=== PATIENT | male | born 1955 | race Caucasian/White ===

== ENCOUNTER 2020-08-03 04:21 | Emergency (ER) | payer MEDICAID, SELFPAY ==
[~2020-08-03] VITALS: Ht 177.8 cm; Wt 56.2 kg
--- NOTE | 2020-08-03 04:59 | NUR ---
PT SITTING IN BED, POSTITIONED TO COMFORT, BEDRAILS UP X2, CALL LIGHT IN REACH. PT CONNECTED TO BP AND O2 MONITORS. PT STARTED TREATMENT FOR CA ON 07/16/2020.
[2020-08-03 05:22] LABS: ALBUMIN 2.6 g/dL (3.4-5.0); ANION GAP 6 mmol/L (5-15); CALCIUM 8.9 mg/dL (8.5-10.1); CHLORIDE 98 mmol/L (98-107)
[2020-08-03 05:24] LABS: BASOPHILS % (AUTO) 1 % (0-1); EOSINOPHILS % (AUTO) 1 % (1-7); LYMPHOCYTES % (AUTO) 16 % (22-44); MEAN CORPUSCULAR HEMOGLOBIN 28.1 pg (27.5-34.5); MEAN CORPUSCULAR HGB CONC 33.9 g/dL (33.2-36.2); MONOCYTES % (AUTO) 10 % (2-9); NEUTROPHILS % (AUTO) 72 % (42-75); PLATELET COUNT 360 x10^3/uL (130-400); RED BLOOD COUNT 4.45 x10^6/uL (4.38-5.82); RED CELL DISTRIBUTION WIDTH 16.4 % (9.4-14.8)
[2020-08-03 05:26] LABS: ALANINE AMINOTRANSFERASE 21 U/L (12-78); ALKALINE PHOSPHATASE 92 U/L (45-117); BILIRUBIN,TOTAL 0.6 mg/dL (0.2-1.0); CREATININE 0.69 mg/dL (0.7-1.3); TOTAL PROTEIN 6.9 g/dL (6.4-8.2)
[2020-08-03 05:54] LABS: MD NO
--- NOTE | 2020-08-03 05:56 | NUR ---
AWAITING US READ, PT CONDITION UNCHANGED. ALL NEEDS MET AT THIS TIME.
[2020-08-03] MEDS ORDERED: SODIUM CHLORIDE FLUSH 10ML SYR IVF ONE (06:30)
[2020-08-03] MEDS ORDERED: SODIUM CHLORIDE 0.9% 1,000ML IVBOLUS ONE (06:30)
--- NOTE | 2020-08-03 06:38 | NUR ---
MD TO BEDSIDE. PT INTERACTING APPRORIATELY. ALL NEEDS MET AT THIS TIME. PT PLACED ON TELETYPE OR VARITYPE KEYBOARD OPERATOR. FLUIDS INFUSING, WILL CONTINUE TO MONITOR BP. PT DENIES DIZZINESS OR LIGHTHEADEDNESS. PT STATES HE'S BEEN FEELING MORE EASILY TIRED THE PAST 2 WEEKS WHEN HE FIRST NOTED THE ARM SWELLING.
--- NOTE | 2020-08-03 06:57 | NUR ---
BEDSIDE REPORT TO [employer].
[2020-08-03 07:15] VITALS: BP 98/65
== END 2020-08-03 09:12 | disposition home or self-care (01) ==
LOC: ED 06:28
DX: I89.0 Lymphedema, not elsewhere classified (principal)
CPT/HCPCS: 36415; 80053; 85025; 93971; 99284; J7030

== ENCOUNTER → 2020-10-09 | Outpatient (CLI) | payer MEDICAID | END | disposition home or self-care (01) | LOC: RAD 11:18 | PROVIDERS: ATTEND Internal Medicine | DX: C43.62 Malignant melanoma of left upper limb, including shoulder (principal); R22.2 Localized swelling, mass and lump, trunk ==

== ENCOUNTER 2021-07-08 00:56 | Inpatient (IN) | payer MEDICAID ==
[2021-07-08] VITALS (8 sets, daily range): BP systolic 78–109; BP diastolic 44–63
[~2021-07-08] VITALS: Ht 177.8 cm; Wt 65.0 kg
--- NOTE | 2021-07-08 01:05 | NUR ---
PT BIB EMS FROM HOME W CO MULTIPLE BLACK STOOLS AND TWO EPISODES OF HEMATEMESIS TODAY. PT HYPOTENSIVE AND ORTHOSTATIC ONSCENE. ARRIVES A&OX4, PALE; BLOOD NOTED ON FACE, HANDS, AND CLOTHING. DENIES ABD PAIN. DENIES BLOOD THINNERS THOUGH REPORTS TAKING ASPIRIN SUPPLEMENTS REGULARLY "FOR STOMACHE PROBLEMS". MM PALE, ABD NON-TENDER. HX CANCER WHICH PT STATES "I'VE BEEN DOING REALLY WELL SO THEY STOPPED MY TREATMENT". SIGNIFICANT WEIGHT LOSS WITH CA THERAPIES THOUGH STATES WEIGHT HAS MAINTAINED FOR SEVERAL MONTHS. BP/SPO2/ECG MONITORING IN PLACE. PT HYPOTENSIVE, SINUS TACH ON MONITOR. PIV X2; LABS INCLUDING TYPE AND SCREEN COLLECTED. PT CONSENT TO BLOOD PRODUCTS COMPLETED AND IS AT BEDSIDE.
[2021-07-08] MEDS ORDERED: PANTOPRAZOLE 40 MG IV ONE (01:13)
--- NOTE | 2021-07-08 01:18 | NUR ---
PT MEDICATED PER EMAR. REMAINS HYPOTENSIVE, DENIES ASSOCIATED WEAKNESS/DIZZINESS/NAUSEA.
[2021-07-08] MEDS ORDERED: PANTOPRAZOLE 80 MG in SODIUM CHLORIDE 0.9% 100 ML IV SCH (01:30)
[2021-07-08] MEDS ORDERED: SODIUM CHLORIDE FLUSH 10ML SYR IVF ONE (01:30)
[2021-07-08] MEDS ORDERED: SODIUM CHLORIDE 0.9% 1,000ML IVBOLUS ONE (01:30)
[2021-07-08] MEDS ORDERED: PANTOPRAZOLE 40 MG IV IVPush ONE (01:30)
[2021-07-08 01:55] LABS: BASOPHILS % (AUTO) 1 % (0-1); EOSINOPHILS % (AUTO) 1 % (1-7); LYMPHOCYTES % (AUTO) 25 % (22-44); MEAN CORPUSCULAR HGB CONC 34.3 g/dL (33.2-36.2); MEAN PLATELET VOLUME 6.3 fL (7.4-10.4); MONOCYTES % (AUTO) 7 % (2-9); NEUTROPHILS % (AUTO) 67 % (42-75); PLATELET COUNT 223 x10^3/uL (130-400); RED BLOOD COUNT 2.44 x10^6/uL (4.38-5.82); RED CELL DISTRIBUTION WIDTH 14.9 % (9.4-14.8)
[2021-07-08 02:09] LABS: ALANINE AMINOTRANSFERASE 21 U/L (12-78); ALBUMIN 2.1 g/dL (3.4-5.0); ANION GAP 5 mmol/L (5-15); CALCIUM 7.7 mg/dL (8.5-10.1); CHLORIDE 108 mmol/L (98-107); CREATININE 0.82 mg/dL (0.7-1.3)
[2021-07-08 02:11] LABS: ALKALINE PHOSPHATASE 63 U/L (45-117); BILIRUBIN,TOTAL 0.5 mg/dL (0.2-1.0); SALICYLATE LEVEL < 1.7 mg/dL (2.8-20.0); TOTAL PROTEIN 5.4 g/dL (6.4-8.2)
[2021-07-08 02:12] LABS: INTERNATIONAL NORMALIZED RATIO 1.09 (0.93-1.1); PROTHROMBIN TIME 11.6 Seconds (9.6-11.5)
--- NOTE | 2021-07-08 02:19 | NUR ---
REPORT RECEIVED FROM GIBRAN RN, PT CARE TRANSFERRED AT THIS TIME. PT NAD, NO CHANGE IN CONDITION, DENIES DIZZINESS, MUCOUS MEMBRANES ARE NOTED TO BE PALE, SKIN IS PALE, BP IS HYPOTENSIVE. Patient is resting comfortably in bed. Bed in lowest, rails engaged, call light on lap. WCTM.
[2021-07-08] MEDS: NOREPINEPHRINE 8 MG in SODIUM CHLORIDE 0.9% 242 ML IV PRN ×2 (03:11→21:47)
--- NOTE | 2021-07-08 03:17 | NUR ---
CENTRAL LINE PLACED, PT TOLERATED WELL, NAD, MEDICATED PER MAR, BLOOD STARTED, PROVIDED WARM BLANKETS FOR COMFORT, PT IS STILL PALE AND HYPOTENSIVE. RAD ORDERED FOR CENTRAL VERIFICATION. BED IN LOWEST, RAILS ENGAGED, CALL LIGHT ON LAP, WCTM.
[2021-07-08 03:59] LABS: BASOPHILS % (AUTO) 0 % (0-1); EOSINOPHILS % (AUTO) 0 % (1-7); LYMPHOCYTES % (AUTO) 5 % (22-44); MEAN CORPUSCULAR HEMOGLOBIN 30.6 pg (27.5-34.5); MEAN CORPUSCULAR HGB CONC 34.6 g/dL (33.2-36.2); MEAN PLATELET VOLUME 6.2 fL (7.4-10.4); MONOCYTES % (AUTO) 5 % (2-9); NEUTROPHILS % (AUTO) 89 % (42-75); PLATELET COUNT 237 x10^3/uL (130-400); RED BLOOD COUNT 2.41 x10^6/uL (4.38-5.82); RED CELL DISTRIBUTION WIDTH 14.9 % (9.4-14.8)
[2021-07-08] MEDS ORDERED: ONDANSETRON 2MG/ML, 2ML IV PRN (04:00)
[2021-07-08] MEDS ORDERED: PANTOPRAZOLE 40 MG IV IVPush SCH (04:00)
[2021-07-08] MEDS: SODIUM CHLORIDE 0.9% 1,000 ML IV SCH ×2 (04:00→16:00)
[2021-07-08] MEDS ORDERED: ACETAMINOPHEN 325 MG TABLET PO PRN (04:00)
[2021-07-08] MEDS ORDERED: ACETAMINOPHEN 650 MG SUPP PR PRN (04:00)
--- NOTE | 2021-07-08 04:14 | NUR ---
BREAK RN: OK TO USE CVC PER MD. ALL GTTS SWITCHED OVER, INFUSING WELL. PT DENIES ANY NEEDS AT THIS TIME. RR EVEN NON LABORED. REMAINS ON ALL MONITORS. WILL CTM.
--- NOTE | 2021-07-08 05:20 | NUR ---
pt hospital bed ordered, transferred to hospital bed, provided clean underwear for comfort, stand by assist to use urinal, nad, appears more comfortable, updated on poc, denies additional questions or needs. Patient is resting comfortably in bed. Bed in lowest, rails engaged, call light on lap. WCTM.
--- NOTE | 2021-07-08 06:10 | NUR ---
pt swabbed for covid, swab walked to lab, pt nad, no change in condition, vss, Patient is resting comfortably in bed. Bed in lowest, rails engaged, call light on lap. TM.
--- NOTE | 2021-07-08 06:43 | NUR ---
RN SPOKE WITH ICU PROVIDER PRAKASH BONILLA, TELEPHONE ORDER TO MOVE UP LABS TO 0800. PER LAB, UNABLE TO DRAW BMP DUE TO BLOOD RUNNING, RESCHEDULED TO 0800 WITH OTHER LABS WHEN BLOOD IS COMPLETE. PT NAD, NO CHANGE IN CONDITION, WCTM.
--- NOTE | 2021-07-08 06:54 | NUR ---
BEDSIDE REPORT TO PATRICIA CARRASQUILLO, PT CARE TRANSFERRED AT THIS TIME.
--- NOTE | 2021-07-08 07:47 | NUR ---
PT UP AT BEDSIDE TO USE URINAL. STEADY ON FEET. RETURNED TO BED W/O INCIDENT. 500ML OUTPUT. CAMERON COLÓN.
--- NOTE | 2021-07-08 08:27 | NUR ---
PT SLEEPING ON HOSPITAL. RESP EVEN AND UNLABORED, NADN. AWAITING ADMIT.
[2021-07-08 08:28] LABS: ANION GAP 3 mmol/L (5-15); CALCIUM 7.7 mg/dL (8.5-10.1); CHLORIDE 113 mmol/L (98-107); CREATININE 0.61 mg/dL (0.7-1.3)
[2021-07-08] MEDS ORDERED: MIDAZOLAM 1 MG/ML, 5ML ONE (09:16)
[2021-07-08] MEDS ORDERED: FENTANYL PF 100 MCG/2ML ONE (09:16)
--- NOTE | 2021-07-08 09:24 | NUR ---
ENDO AT BEDSIDE SETTING UP FOR SCOPE.
--- NOTE | 2021-07-08 10:11 | NUR ---
PROCEDURE COMPLETED. ENDO RN AT BEDSIDE FOR RECOVERY.
--- NOTE | 2021-07-08 10:12 | NUR ---
PT AROUSED BY VOICE, SOFT TOUCH. VSS, NADN.
[2021-07-08] MEDS: PANTOPRAZOLE 80 MG in SODIUM CHLORIDE 0.9% 100 ML IV SCH ×2 (11:16→22:26)
--- NOTE | 2021-07-08 11:33 | NUR ---
PT UP AT BEDSIDE TO USE URINAL. STEADY ON FEET. RETURNED TO BED W/O INCIDENT. 500ML OUTPUT. CAMERON COLÓN.
--- NOTE | 2021-07-08 13:19 | NUR ---
PT UP AT BEDSIDE TO USE URINAL. STEADY ON FEET. RETURNED TO BED W/O INCIDENT. 500ML OUTPUT. CAMERON COLÓN.
--- NOTE | 2021-07-08 13:27 | NUR ---
REPORT TO BRIAN CARRASQUILLO.
--- NOTE | 2021-07-08 13:35 | NUR ---
PER ENDO RN. LARGE ULCER IN BEGINING OF SMALL INTESTINE.
--- NOTE | 2021-07-08 13:53 | NUR ---
SISTER JASE CALLED AT [phone] UPDATED ON POC AND WOULD LIKE TO BE UDATED ON ANY CHANGES WITH BROTHER.
[2021-07-09] MEDS: NOREPINEPHRINE 8 MG in SODIUM CHLORIDE 0.9% 242 ML IV PRN ×4 (01:28→23:59)
[2021-07-09] MEDS: SODIUM CHLORIDE 0.9% 1,000 ML IV SCH ×3 (01:33→16:14)
[2021-07-09 04:00] VITALS: BP 102/57
[2021-07-09 04:55] LABS: BASOPHILS % (AUTO) 1 % (0-1); EOSINOPHILS % (AUTO) 1 % (1-7); LYMPHOCYTES % (AUTO) 11 % (22-44); MEAN CORPUSCULAR HEMOGLOBIN 31.5 pg (27.5-34.5); MEAN CORPUSCULAR HGB CONC 35.4 g/dL (33.2-36.2); MEAN PLATELET VOLUME 6.2 fL (7.4-10.4); MONOCYTES % (AUTO) 7 % (2-9); NEUTROPHILS % (AUTO) 81 % (42-75); PLATELET COUNT 181 x10^3/uL (130-400); RED BLOOD COUNT 2.69 x10^6/uL (4.38-5.82); RED CELL DISTRIBUTION WIDTH 15.9 % (9.4-14.8)
[2021-07-09 05:05] LABS: CHLORIDE 115 mmol/L (98-107)
[2021-07-09 05:09] LABS: ANION GAP 4 mmol/L (5-15); CALCIUM 7.4 mg/dL (8.5-10.1); CREATININE 0.53 mg/dL (0.7-1.3)
[2021-07-09] MEDS: PANTOPRAZOLE 80 MG in SODIUM CHLORIDE 0.9% 100 ML IV SCH ×2 (08:28→20:49)
[2021-07-09] MEDS ORDERED: MIDODRINE 5 MG TABLET PO SCH (16:00)
[2021-07-09] MEDS: HYDROCORTISONE 10 MG TABLET PO SCH (18:20)
[2021-07-10] VITALS (9 sets, daily range): BP systolic 96–120; BP diastolic 42–68
[2021-07-10] MEDS: SODIUM CHLORIDE 0.9% 1,000 ML IV SCH ×2 (04:20→17:36)
[2021-07-10] MEDS: NOREPINEPHRINE 8 MG in SODIUM CHLORIDE 0.9% 242 ML IV PRN (04:41)
[2021-07-10 04:54] LABS: ANION GAP 6 mmol/L (5-15); CALCIUM 7.6 mg/dL (8.5-10.1); CHLORIDE 113 mmol/L (98-107)
[2021-07-10 04:56] LABS: CREATININE 0.51 mg/dL (0.7-1.3)
[2021-07-10] MEDS ORDERED: SODIUM CHLORIDE 0.9% 250 ML IV ONE (05:30)
[2021-07-10 06:22] LABS: BASOPHILS % (AUTO) 1 % (0-1); EOSINOPHILS % (AUTO) 1 % (1-7); LYMPHOCYTES % (AUTO) 17 % (22-44); MEAN CORPUSCULAR HEMOGLOBIN 31.7 pg (27.5-34.5); MEAN CORPUSCULAR HGB CONC 35.4 g/dL (33.2-36.2); MEAN PLATELET VOLUME 6.3 fL (7.4-10.4); MONOCYTES % (AUTO) 8 % (2-9); NEUTROPHILS % (AUTO) 73 % (42-75); PLATELET COUNT 180 x10^3/uL (130-400); RED CELL DISTRIBUTION WIDTH 16.3 % (9.4-14.8)
[2021-07-10] MEDS: PANTOPRAZOLE 80 MG in SODIUM CHLORIDE 0.9% 100 ML IV SCH ×2 (07:08→21:46)
[2021-07-10] MEDS: HYDROCORTISONE 10 MG TABLET PO SCH ×3 (08:01→17:36)
[2021-07-10] MEDS ORDERED: OMNIPAQUE 350 MG/ML, 100ML BOTTLE ONE (10:04)
[2021-07-10 19:01] LABS: BASOPHILS % (AUTO) 0 % (0-1); EOSINOPHILS % (AUTO) 0 % (1-7); LYMPHOCYTES % (AUTO) 8 % (22-44); MEAN CORPUSCULAR HEMOGLOBIN 30.2 pg (27.5-34.5); MEAN CORPUSCULAR HGB CONC 34.7 g/dL (33.2-36.2); MEAN PLATELET VOLUME 6.6 fL (7.4-10.4); MONOCYTES % (AUTO) 5 % (2-9); NEUTROPHILS % (AUTO) 86 % (42-75); PLATELET COUNT 146 x10^3/uL (130-400); RED BLOOD COUNT 2.78 x10^6/uL (4.38-5.82); RED CELL DISTRIBUTION WIDTH 15.8 % (9.4-14.8)
[2021-07-11] MEDS: NOREPINEPHRINE 8 MG in SODIUM CHLORIDE 0.9% 242 ML IV PRN (00:32)
[2021-07-11] MEDS: SODIUM CHLORIDE 0.9% 1,000 ML IV SCH ×2 (05:37→18:07)
[2021-07-11] MEDS: PANTOPRAZOLE 80 MG in SODIUM CHLORIDE 0.9% 100 ML IV SCH ×2 (06:01→14:58)
[2021-07-11 06:14] LABS: BASOPHILS % (AUTO) 1 % (0-1); EOSINOPHILS % (AUTO) 3 % (1-7); LYMPHOCYTES % (AUTO) 18 % (22-44); MEAN CORPUSCULAR HEMOGLOBIN 30.5 pg (27.5-34.5); MEAN CORPUSCULAR HGB CONC 35.5 g/dL (33.2-36.2); MEAN PLATELET VOLUME 6.6 fL (7.4-10.4); MONOCYTES % (AUTO) 9 % (2-9); NEUTROPHILS % (AUTO) 68 % (42-75); PLATELET COUNT 155 x10^3/uL (130-400); RED BLOOD COUNT 2.61 x10^6/uL (4.38-5.82); RED CELL DISTRIBUTION WIDTH 16.3 % (9.4-14.8)
[2021-07-11] MEDS: HYDROCORTISONE 10 MG TABLET PO SCH ×3 (08:14→17:12)
[2021-07-11] MEDS ORDERED: PANTOPRAZOLE 40 MG IV IVPush SCH (09:00)
[2021-07-11] MEDS ORDERED: PANTOPRAZOLE 40MG TABLET PO SCH (09:03)
[2021-07-11] MEDS ORDERED: NOREPINEPHRINE 8 MG in SODIUM CHLORIDE 0.9% 242 ML IV PRN (13:30)
[2021-07-12] MEDS: PANTOPRAZOLE 80 MG in SODIUM CHLORIDE 0.9% 100 ML IV SCH (00:31)
[2021-07-12 05:48] LABS: BASOPHILS % (AUTO) 1 % (0-1); EOSINOPHILS % (AUTO) 5 % (1-7); LYMPHOCYTES % (AUTO) 22 % (22-44); MEAN CORPUSCULAR HEMOGLOBIN 30.6 pg (27.5-34.5); MEAN CORPUSCULAR HGB CONC 35.1 g/dL (33.2-36.2); MEAN PLATELET VOLUME 6.5 fL (7.4-10.4); MONOCYTES % (AUTO) 10 % (2-9); NEUTROPHILS % (AUTO) 63 % (42-75); PLATELET COUNT 176 x10^3/uL (130-400); RED BLOOD COUNT 2.51 x10^6/uL (4.38-5.82); RED CELL DISTRIBUTION WIDTH 16.2 % (9.4-14.8)
[2021-07-12] MEDS: SODIUM CHLORIDE 0.9% 1,000 ML IV SCH (06:14)
[2021-07-12] MEDS: SENNA/DOCUSATE TABLET PO SCH (09:02)
[2021-07-12] MEDS: HYDROCORTISONE 10 MG TABLET PO SCH ×3 (09:02→16:43)
[2021-07-12] MEDS: FLUDROCORTISONE 0.1 MG TABLET PO SCH ×2 (10:05→20:57)
[2021-07-12] MEDS: PANTOPRAZOLE 40MG TABLET PO SCH (16:43)
[2021-07-13] MEDS: PANTOPRAZOLE 40MG TABLET PO SCH ×2 (05:28→16:23)
[2021-07-13 05:58] LABS: BASOPHILS % (AUTO) 1 % (0-1); EOSINOPHILS % (AUTO) 4 % (1-7); LYMPHOCYTES % (AUTO) 25 % (22-44); MEAN CORPUSCULAR HEMOGLOBIN 31.1 pg (27.5-34.5); MEAN CORPUSCULAR HGB CONC 35.7 g/dL (33.2-36.2); MEAN PLATELET VOLUME 6.3 fL (7.4-10.4); MONOCYTES % (AUTO) 10 % (2-9); NEUTROPHILS % (AUTO) 61 % (42-75); PLATELET COUNT 186 x10^3/uL (130-400); RED CELL DISTRIBUTION WIDTH 16.3 % (9.4-14.8)
[2021-07-13 06:06] LABS: CHLORIDE 109 mmol/L (98-107)
[2021-07-13 06:12] LABS: ANION GAP 7 mmol/L (5-15); CALCIUM 7.7 mg/dL (8.5-10.1); CREATININE 0.54 mg/dL (0.7-1.3)
[2021-07-13] MEDS: FLUDROCORTISONE 0.1 MG TABLET PO SCH ×2 (08:43→20:31)
[2021-07-13] MEDS: HYDROCORTISONE 10 MG TABLET PO SCH ×3 (08:43→16:23)
[2021-07-13] MEDS: SENNA/DOCUSATE TABLET PO SCH (08:43)
[2021-07-13] MEDS: POTASSIUM CHLORIDE 20 MEQ TAB.ER.PRT PO SCH ×2 (08:43→14:07)
[2021-07-13] MEDS ORDERED: MELATONIN 5 MG TABLET PO PRN (18:30)
[2021-07-13] MEDS: NOREPINEPHRINE 8 MG in SODIUM CHLORIDE 0.9% 242 ML IV PRN (20:31)
[2021-07-14 04:34] LABS: BASOPHILS % (AUTO) 1 % (0-1); EOSINOPHILS % (AUTO) 2 % (1-7); LYMPHOCYTES % (AUTO) 22 % (22-44); MEAN CORPUSCULAR HEMOGLOBIN 31.3 pg (27.5-34.5); MEAN CORPUSCULAR HGB CONC 35.2 g/dL (33.2-36.2); MEAN PLATELET VOLUME 6.4 fL (7.4-10.4); MONOCYTES % (AUTO) 10 % (2-9); NEUTROPHILS % (AUTO) 66 % (42-75); PLATELET COUNT 234 x10^3/uL (130-400); RED BLOOD COUNT 2.59 x10^6/uL (4.38-5.82); RED CELL DISTRIBUTION WIDTH 17.8 % (9.4-14.8)
[2021-07-14 04:35] LABS: ALBUMIN 2.3 g/dL (3.4-5.0); ANION GAP 5 mmol/L (5-15); CALCIUM 7.9 mg/dL (8.5-10.1); CHLORIDE 110 mmol/L (98-107)
[2021-07-14 04:40] LABS: ALANINE AMINOTRANSFERASE 24 U/L (12-78); ALKALINE PHOSPHATASE 65 U/L (45-117); BILIRUBIN,TOTAL 0.5 mg/dL (0.2-1.0); CREATININE 0.59 mg/dL (0.7-1.3); TOTAL PROTEIN 5.6 g/dL (6.4-8.2)
[2021-07-14] MEDS: PANTOPRAZOLE 40MG TABLET PO SCH ×3 (04:57→21:06)
[2021-07-14] MEDS: SENNA/DOCUSATE TABLET PO SCH (08:56)
[2021-07-14] MEDS: HYDROCORTISONE 10 MG TABLET PO SCH ×3 (09:12→15:47)
[2021-07-14] MEDS: MIDODRINE 5 MG TABLET PO SCH ×3 (09:13→21:07)
[2021-07-14] MEDS: FLUDROCORTISONE 0.1 MG TABLET PO SCH ×2 (09:15→21:07)
[2021-07-14] MEDS: NOREPINEPHRINE 8 MG in SODIUM CHLORIDE 0.9% 242 ML IV PRN (14:49)
[2021-07-14] MEDS ORDERED: POTASSIUM CHLORIDE 20 MEQ TAB.ER.PRT PO ONE (15:30)
[2021-07-14] MEDS ORDERED: MAGNESIUM SULFATE PMX 2GM/50ML 50 ML IV ONE (15:30)
[2021-07-14] MEDS ORDERED: MAGNESIUM SULFATE PMX 2GM/50ML 50 ML ONE (15:42)
[2021-07-14] MEDS ORDERED: POTASSIUM CHLORIDE 20 MEQ TAB.ER.PRT ONE (15:43)
[2021-07-15] VITALS (7 sets, daily range): BP systolic 80–97; BP diastolic 47–57
[2021-07-15] MEDS: SENNA/DOCUSATE TABLET PO SCH (08:18)
[2021-07-15] MEDS: MIDODRINE 5 MG TABLET PO SCH ×3 (08:18→21:25)
[2021-07-15] MEDS: PANTOPRAZOLE 40MG TABLET PO SCH ×2 (08:18→21:25)
[2021-07-15] MEDS: HYDROCORTISONE 10 MG TABLET PO SCH ×3 (08:18→17:37)
[2021-07-15] MEDS: FLUDROCORTISONE 0.1 MG TABLET PO SCH ×2 (08:18→21:25)
[2021-07-15] MEDS ORDERED: SODIUM CHLORIDE 0.9% 250 ML IV ONE (09:00)
[2021-07-15] MEDS: NOREPINEPHRINE 8 MG in SODIUM CHLORIDE 0.9% 242 ML IV PRN (09:24)
[2021-07-15 10:51] LABS: BASOPHILS % (AUTO) 1 % (0-1); EOSINOPHILS % (AUTO) 2 % (1-7); LYMPHOCYTES % (AUTO) 21 % (22-44); MEAN CORPUSCULAR HEMOGLOBIN 31.4 pg (27.5-34.5); MEAN CORPUSCULAR HGB CONC 34.7 g/dL (33.2-36.2); MEAN PLATELET VOLUME 6.4 fL (7.4-10.4); MONOCYTES % (AUTO) 9 % (2-9); NEUTROPHILS % (AUTO) 67 % (42-75); PLATELET COUNT 261 x10^3/uL (130-400); RED BLOOD COUNT 2.43 x10^6/uL (4.38-5.82); RED CELL DISTRIBUTION WIDTH 20.1 % (9.4-14.8)
[2021-07-15 10:58] LABS: ANION GAP 7 mmol/L (5-15); CALCIUM 7.7 mg/dL (8.5-10.1); CHLORIDE 109 mmol/L (98-107); CREATININE 0.66 mg/dL (0.7-1.3)
[2021-07-16 08:06] LABS: BASOPHILS % (AUTO) 1 % (0-1); EOSINOPHILS % (AUTO) 4 % (1-7); LYMPHOCYTES % (AUTO) 22 % (22-44); MEAN CORPUSCULAR HEMOGLOBIN 31.1 pg (27.5-34.5); MEAN CORPUSCULAR HGB CONC 34.9 g/dL (33.2-36.2); MEAN PLATELET VOLUME 6.1 fL (7.4-10.4); MONOCYTES % (AUTO) 10 % (2-9); NEUTROPHILS % (AUTO) 63 % (42-75); PLATELET COUNT 229 x10^3/uL (130-400); RED BLOOD COUNT 2.79 x10^6/uL (4.38-5.82); RED CELL DISTRIBUTION WIDTH 18.3 % (9.4-14.8)
[2021-07-16 08:13] LABS: ANION GAP 3 mmol/L (5-15); CALCIUM 7.7 mg/dL (8.5-10.1); CHLORIDE 108 mmol/L (98-107); CREATININE 0.56 mg/dL (0.7-1.3)
[2021-07-16] MEDS: MIDODRINE 5 MG TABLET PO SCH ×3 (08:18→20:26)
[2021-07-16] MEDS: PANTOPRAZOLE 40MG TABLET PO SCH ×2 (08:19→20:26)
[2021-07-16] MEDS: SENNA/DOCUSATE TABLET PO SCH (08:19)
[2021-07-16] MEDS: HYDROCORTISONE 10 MG TABLET PO SCH (08:19)
[2021-07-16] MEDS: FLUDROCORTISONE 0.1 MG TABLET PO SCH ×2 (08:19→20:26)
[2021-07-16] MEDS: NOREPINEPHRINE 8 MG in SODIUM CHLORIDE 0.9% 242 ML IV PRN (08:42)
[2021-07-16] MEDS ORDERED: HYDROCORTISONE 250 MG/2 ML IVPush SCH (10:30)
[2021-07-16] MEDS: POTASSIUM CHLORIDE 20 MEQ TAB.ER.PRT PO SCH ×3 (10:41→22:37)
[2021-07-16] MEDS: HYDROCORTISONE 100 MG INJ. IVPush SCH ×3 (10:41→22:36)
[2021-07-17 04:18] LABS: BASOPHILS % (AUTO) 0 % (0-1); EOSINOPHILS % (AUTO) 0 % (1-7); LYMPHOCYTES % (AUTO) 7 % (22-44); MEAN CORPUSCULAR HEMOGLOBIN 31.6 pg (27.5-34.5); MEAN CORPUSCULAR HGB CONC 35.1 g/dL (33.2-36.2); MEAN PLATELET VOLUME 6.6 fL (7.4-10.4); MONOCYTES % (AUTO) 2 % (2-9); NEUTROPHILS % (AUTO) 91 % (42-75); PLATELET COUNT 282 x10^3/uL (130-400); RED BLOOD COUNT 2.87 x10^6/uL (4.38-5.82)
[2021-07-17 04:21] LABS: ANION GAP 5 mmol/L (5-15); CHLORIDE 108 mmol/L (98-107); CREATININE 0.58 mg/dL (0.7-1.3)
[2021-07-17] MEDS: HYDROCORTISONE 100 MG INJ. IVPush SCH ×4 (04:37→20:55)
[2021-07-17] MEDS: POTASSIUM CHLORIDE 20 MEQ TAB.ER.PRT PO SCH (04:39)
[2021-07-17] MEDS ORDERED: METHYLNALTREXONE 12 MG/0.6 ML SYR SQ PRN (09:00)
[2021-07-17] MEDS ORDERED: FUROSEMIDE 40 MG/4 ML IV ONE (09:00)
[2021-07-17] MEDS: PANTOPRAZOLE 40MG TABLET PO SCH ×2 (09:10→20:55)
[2021-07-17] MEDS: MIDODRINE 5 MG TABLET PO SCH ×3 (09:10→20:55)
[2021-07-17] MEDS: FLUDROCORTISONE 0.1 MG TABLET PO SCH ×2 (09:10→20:55)
[2021-07-17] MEDS: SENNA/DOCUSATE TABLET PO SCH (09:10)
[2021-07-18] MEDS: HYDROCORTISONE 100 MG INJ. IVPush SCH ×4 (05:00→21:57)
[2021-07-18 05:49] LABS: CHLORIDE 107 mmol/L (98-107)
[2021-07-18 05:58] LABS: BASOPHILS % (AUTO) 0 % (0-1); EOSINOPHILS % (AUTO) 0 % (1-7); LYMPHOCYTES % (AUTO) 9 % (22-44); MEAN CORPUSCULAR HEMOGLOBIN 31.1 pg (27.5-34.5); MEAN CORPUSCULAR HGB CONC 34.3 g/dL (33.2-36.2); MEAN PLATELET VOLUME 6.6 fL (7.4-10.4); MONOCYTES % (AUTO) 4 % (2-9); NEUTROPHILS % (AUTO) 87 % (42-75); PLATELET COUNT 259 x10^3/uL (130-400); RED BLOOD COUNT 2.61 x10^6/uL (4.38-5.82); RED CELL DISTRIBUTION WIDTH 19.3 % (9.4-14.8)
[2021-07-18 06:04] LABS: ALANINE AMINOTRANSFERASE 36 U/L (12-78); ALBUMIN 2.2 g/dL (3.4-5.0); ALKALINE PHOSPHATASE 54 U/L (45-117); ANION GAP 4 mmol/L (5-15); BILIRUBIN,TOTAL 0.5 mg/dL (0.2-1.0); CALCIUM 8.3 mg/dL (8.5-10.1); CREATININE 0.65 mg/dL (0.7-1.3); TOTAL PROTEIN 5.3 g/dL (6.4-8.2)
[2021-07-18] MEDS: MIDODRINE 5 MG TABLET PO SCH ×3 (08:39→20:39)
[2021-07-18] MEDS: PANTOPRAZOLE 40MG TABLET PO SCH ×2 (08:39→20:39)
[2021-07-18] MEDS: SENNA/DOCUSATE TABLET PO SCH (08:39)
[2021-07-18] MEDS: FLUDROCORTISONE 0.1 MG TABLET PO SCH ×2 (08:39→20:40)
[2021-07-18 13:23] VITALS: BP 91/52
[2021-07-18 15:17] VITALS: BP_SYST 82; BP_SYST 90; BP_DIAS 44; BP_DIAS 47
[2021-07-18 20:04] VITALS: BP 105/52
[2021-07-19 01:20] VITALS: BP 122/56
[2021-07-19] MEDS: HYDROCORTISONE 100 MG INJ. IVPush SCH ×2 (04:33→09:36)
[2021-07-19 05:07] LABS: BASOPHILS % (AUTO) 0 % (0-1); EOSINOPHILS % (AUTO) 0 % (1-7); LYMPHOCYTES % (AUTO) 6 % (22-44); MEAN CORPUSCULAR HEMOGLOBIN 31.8 pg (27.5-34.5); MEAN CORPUSCULAR HGB CONC 34.9 g/dL (33.2-36.2); MEAN PLATELET VOLUME 6.5 fL (7.4-10.4); MONOCYTES % (AUTO) 4 % (2-9); NEUTROPHILS % (AUTO) 91 % (42-75); PLATELET COUNT 266 x10^3/uL (130-400); RED BLOOD COUNT 2.73 x10^6/uL (4.38-5.82); RED CELL DISTRIBUTION WIDTH 21.1 % (9.4-14.8)
[2021-07-19 05:19] LABS: ALBUMIN 2.3 g/dL (3.4-5.0); ANION GAP 6 mmol/L (5-15); CALCIUM 8.3 mg/dL (8.5-10.1); CHLORIDE 108 mmol/L (98-107)
[2021-07-19 05:23] LABS: % IRON SATURATION 14 % (20-55); ALANINE AMINOTRANSFERASE 37 U/L (12-78); ALKALINE PHOSPHATASE 56 U/L (45-117); BILIRUBIN,TOTAL 0.3 mg/dL (0.2-1.0); CREATININE 0.66 mg/dL (0.7-1.3); IRON LEVEL 39 mcg/dL (65-175); TOTAL IRON BINDING CAPACITY 286 mcg/dL (250-450); TOTAL PROTEIN 5.4 g/dL (6.4-8.2)
[2021-07-19] MEDS: SENNA/DOCUSATE TABLET PO SCH ×2 (09:00→09:35)
[2021-07-19] MEDS: MIDODRINE 5 MG TABLET PO SCH ×3 (09:35→21:21)
[2021-07-19] MEDS: FLUDROCORTISONE 0.1 MG TABLET PO SCH ×2 (09:36→21:21)
[2021-07-19] MEDS: PANTOPRAZOLE 40MG TABLET PO SCH ×2 (09:36→21:21)
[2021-07-19 09:37] VITALS: BP 93/52
[2021-07-19 12:49] VITALS: BP 93/47
[2021-07-19] MEDS: HYDROCORTISONE 20 MG TABLET PO SCH ×2 (12:52→17:02)
[2021-07-19 19:32] VITALS: BP 93/48
[2021-07-20 02:25] VITALS: BP 105/58
[2021-07-20 05:47] LABS: BASOPHILS % (AUTO) 0 % (0-1); EOSINOPHILS % (AUTO) 0 % (1-7); LYMPHOCYTES % (AUTO) 10 % (22-44); MEAN CORPUSCULAR HEMOGLOBIN 31.6 pg (27.5-34.5); MEAN CORPUSCULAR HGB CONC 34.7 g/dL (33.2-36.2); MEAN PLATELET VOLUME 6.4 fL (7.4-10.4); MONOCYTES % (AUTO) 7 % (2-9); NEUTROPHILS % (AUTO) 84 % (42-75); PLATELET COUNT 298 x10^3/uL (130-400); RED CELL DISTRIBUTION WIDTH 21.4 % (9.4-14.8)
[2021-07-20 05:49] LABS: ANION GAP 5 mmol/L (5-15); CALCIUM 7.8 mg/dL (8.5-10.1); CHLORIDE 107 mmol/L (98-107); CREATININE 0.64 mg/dL (0.7-1.3)
[2021-07-20 05:50] LABS: ALANINE AMINOTRANSFERASE 36 U/L (12-78); ALBUMIN 2.3 g/dL (3.4-5.0)
[2021-07-20 05:52] LABS: ALKALINE PHOSPHATASE 55 U/L (45-117); BILIRUBIN,TOTAL 0.3 mg/dL (0.2-1.0); TOTAL PROTEIN 5.5 g/dL (6.4-8.2)
[2021-07-20 06:24] VITALS: BP 102/59
[2021-07-20] MEDS ORDERED: POTASSIUM CHLORIDE 20 MEQ TAB.ER.PRT PO ONE (08:00)
[2021-07-20] MEDS: HYDROCORTISONE 20 MG TABLET PO SCH (08:44)
[2021-07-20] MEDS: FLUDROCORTISONE 0.1 MG TABLET PO SCH (08:44)
[2021-07-20] MEDS: MIDODRINE 5 MG TABLET PO SCH (08:45)
[2021-07-20] MEDS: PANTOPRAZOLE 40MG TABLET PO SCH (08:45)
[2021-07-20] MEDS: SENNA/DOCUSATE TABLET PO SCH (08:54)
[2021-07-20] MEDS ORDERED: MIDO5TAB9 PO (08:57)
[2021-07-20] MEDS ORDERED: FLUD0.1T PO (08:57)
[2021-07-20] MEDS ORDERED: FERR-36 PO (08:57)
[2021-07-20] MEDS ORDERED: PANT40TA6 PO (08:57)
[2021-07-20] MEDS ORDERED: HYDR20TA PO (08:57)
[2021-07-20] MEDS ORDERED: IRON SUCROSE COMPLEX 100MG/5ML IV ONE (09:00)
[2021-07-21] MEDS ORDERED: FERROUS SULFATE 325 MG TABLET PO SCH (09:00)
== END 2021-07-20 13:00 | disposition home or self-care (01) | DRG 380 ==
LOC: ED 03:10 → EDIP 03:22 → CCU 19:41 → 4NW 07-18 10:27
PROVIDERS: ADMIT Internal Medicine; ATTEND Family Medicine
PROC: B548ZZA Ultrasonography of Superior Vena Cava, Guidance (ICD-10-PCS; 2021-07-08)
PROC: 0DB68ZX Excision of Stomach, Via Natural or Artificial Opening Endoscopic, Diagnostic (ICD-10-PCS; 2021-07-08)
PROC: 30233N1 Transfusion of Nonautologous Red Blood Cells into Peripheral Vein, Percutaneous Approach (ICD-10-PCS; 2021-07-08)
PROC: 02HV33Z Insertion of Infusion Device into Superior Vena Cava, Percutaneous Approach (ICD-10-PCS; principal; 2021-07-08 09:30)
DX: K22.11 Ulcer of esophagus with bleeding (principal); R57.8 Other shock; E43 Unspecified severe protein-calorie malnutrition; D62 Acute posthemorrhagic anemia; C79.9 Secondary malignant neoplasm of unspecified site; I31.3 Pericardial effusion (noninflammatory); J90 Pleural effusion, not elsewhere classified; K26.4 Chronic or unspecified duodenal ulcer with hemorrhage; I10 Essential (primary) hypertension; G89.29 Other chronic pain; Z20.822 Contact with and (suspected) exposure to COVID-19; C43.9 Malignant melanoma of skin, unspecified; E87.6 Hypokalemia; K80.20 Calculus of gallbladder without cholecystitis without obstruction; Z87.891 Personal history of nicotine dependence; Z85.820 Personal history of malignant melanoma of skin; Z68.20 Body mass index [BMI] 20.0-20.9, adult
CPT/HCPCS: 36415; 71045; 74174; 80048; 80053; 80329; 82533; 82962; 83540; 83550; 83605; 83690; 83735; 84100; 85014; 85018; 85025; 85610; 85730; 86850; 86900; 86923; 87081; 87635; 88305; 88342; 93005; 93306; 99285; G0378; J1756; J2250; J3010; Q9967; C9113; G0480; J1720; J3475; J7030; J7050; P9016

== ENCOUNTER 2021-07-28 22:30 | Emergency (ER) | payer MEDICAID ==
[~2021-07-28] VITALS: Ht 177.8 cm; Wt 70.5 kg
[2021-07-29 01:37] VITALS: BP 100/48
== END 2021-07-29 01:45 | disposition home or self-care (01) ==
LOC: ED 23:31
DX: R60.0 Localized edema (principal)